=== PATIENT | male | born 1990 | race African-American/Black ===

== ENCOUNTER 2022-03-28 11:58 | Emergency (ER) | payer SELFPAY ==
[2022-03-28 12:36] VITALS: BP 117/63; PULSE 101; RESP 16; TEMP 98; BMI 21.6
== END 2022-03-28 16:25 | disposition home or self-care (01) ==
LOC: JER 11:58
DX: U07.1 COVID-19 (principal)
CPT/HCPCS: 0241U-QW; 93005; 93010; 99284-25

== ENCOUNTER 2024-07-12 11:18 | Inpatient (IN) | payer OTHER ==
[2024-07-12 14:21] LABS: BASO % 0.1 % (0-2.0); EOS % 2.7 % (0-4.5); HEMATOCRIT 33.7 % (35.4-49); HEMOGLOBIN 10.3 GM/dL (11.7-16.9); MCHC 30.6 g/dl (32.0-35.9); MEAN CELL VOLUME 64.1 fl (80-96); MEAN PLT VOLUME 8.4 fl (7.5-11.1); MONO % 6.7 % (3.8-10.2); NEUT % 80.5 % (42.8-82.8); PLATELET COUNT 544 10^3/uL (134-434); RBC 5.27 M/mm3 (4.00-5.60); RDW 20.8 % (11.9-15.9); WHITE BLOOD COUNT 16.4 K/mm3 (4.0-10.0)
[2024-07-12 14:22] LABS: MCH 19.6 pg (25.7-33.7)
[2024-07-12] MEDS ORDERED: ACETAMINOPHEN INJECTION 100 ML ONE ×2 (14:22→22:58)
[2024-07-12] MEDS ORDERED: MAG HYDROX/AL HYDROX/SIMETH 30 ML UNIT-DOSE CUP ONE (14:23)
[2024-07-12] MEDS ORDERED: FAMOTIDINE 20 MG/50 ML IVPB 20 MG/50 ML MG IVPB ONE (14:23)
[2024-07-12] MEDS: ACETAMINOPHEN 1000 MG/100 ML BAG IVPB ONE ×2 (14:29→23:25)
[2024-07-12] MEDS: MAG HYDROX/AL HYDROX/SIMETH 30 ML UNIT-DOSE CUP PO ONE (14:29)
[2024-07-12] MEDS: FAMOTIDINE 20 MG/50 ML IVPB 20 MG/50 ML MG IVPB ONE (14:30)
[2024-07-12 14:41] LABS: INR 1.05 (0.83-1.09); PROTHROMBIN TIME (PATIENT) 11.9 SEC (9.7-13.0)
[2024-07-12 14:44] LABS: ACTIVATED PTT 30.5 SECONDS (25.2-36.5)
[2024-07-12 14:53] LABS: POTASSIUM 4.2 mmol/L (3.5-5.1)
[2024-07-12 14:56] LABS: ALBUMIN 3.9 g/dl (3.4-5.0); BLOOD UREA NITROGEN 14.1 mg/dL (7-18); CALCIUM 9.8 mg/dL (8.5-10.1)
[2024-07-12 14:59] LABS: CREATININE 1.3 mg/dL (0.55-1.3)
[2024-07-12 15:01] LABS: TOT PROT 7.7 g/dl (6.4-8.2)
[2024-07-12 15:07] LABS: ANISOCYTOSIS 0; MACROCYTOSIS 0
[2024-07-12] MEDS ORDERED: DEXTROSE 50%-WATER 25 GM/50 ML DISP.SYRIN ONE (15:23)
[2024-07-12 15:40] LABS: HIV INTERPRETATION NEGATIVE (NEGATIVE)
[2024-07-12] MEDS: DEXTROSE 50%-WATER 25 GM/50 ML DISP.SYRIN IVPUSH ONE (16:26)
[2024-07-12 17:36] LABS: PH,URINE 5.5 (5.0-8.0); URINE APPEARANCE CLEAR; URINE BILIRUBIN NEGATIVE (NEGATIVE); URINE COLOR YELLOW; URINE GLUCOSE (UA) 2+ (NEGATIVE); URINE KETONE 2+ (NEGATIVE); URINE LEUK ESTERASE NEGATIVE (NEGATIVE); URINE NITRITE NEGATIVE (NEGATIVE); URINE PROTEIN 1+ (NEGATIVE); URINE UROBILINOGEN 0.2 mg/dL (0.2-1.0)
[2024-07-12 17:37] LABS: HYALINE CASTS 0.81 /uL (0-3.1); URINE BACTERIA 5.6 /uL (0-1359); URINE RBC 61.3 /uL (0-23.9); URINE WBC 0.8 /uL (0-25.8)
[2024-07-12 20:54] LABS: RETICULOCYTES 1.51 % (0.5-1.5)
[2024-07-12] MEDS ORDERED: CEFTRIAXONE 1 GM/50 ML BAG ONE (22:58)
[2024-07-12] MEDS: SODIUM CHLORIDE 1,000 ML IV STA (23:10)
[2024-07-12] MEDS: CEFTRIAXONE 1 GM in DEXTROSE 5%-WATER - 50 ML IVPB SCH (23:10)
[2024-07-12] MEDS: INSULIN ASPART SLIDING SCALE (NOVOLOG) 1 VIAL SQ SCH (23:11)
[2024-07-12] MEDS: DEXTROSE 5%-NORMAL SALINE 1,000 ML IV SCH (23:25)
[2024-07-13] MEDS ORDERED: MAG HYDROX/AL HYDROX/SIMETH 30 ML UNIT-DOSE CUP PO PRN (07:55)
[2024-07-13 10:01] LABS: HEMATOCRIT 29.5 % (35.4-49); MCHC 30.7 g/dl (32.0-35.9); MEAN CELL VOLUME 65.1 fl (80-96); MEAN PLT VOLUME 8.6 fl (7.5-11.1); PLATELET COUNT 457 10^3/uL (134-434); RBC 4.53 M/mm3 (4.00-5.60); RDW 20.6 % (11.9-15.9); WHITE BLOOD COUNT 10.2 K/mm3 (4.0-10.0)
[2024-07-13 10:28] LABS: POTASSIUM 3.9 mmol/L (3.5-5.1)
[2024-07-13 10:31] LABS: CALCIUM 8.7 mg/dL (8.5-10.1)
[2024-07-13 10:32] LABS: ALBUMIN 3.3 g/dl (3.4-5.0); MAGNESIUM 2.1 mg/dL (1.8-2.4)
[2024-07-13 10:35] LABS: CREATININE 1.3 mg/dL (0.55-1.3); PHOSPHOROUS 3.1 mg/dL (2.5-4.9)
[2024-07-13 10:36] LABS: BILIRUBIN,TOTAL 0.8 mg/dL (0.2-1); TOT PROT 6.7 g/dl (6.4-8.2)
[2024-07-13] MEDS: CEFTRIAXONE 1 G/50 ML PREMIX 50 ML IVPB SCH (10:55)
[2024-07-13 12:42] VITALS: BMI 20.2
[2024-07-14 08:08] LABS: HEMATOCRIT 28.2 % (35.4-49); HEMOGLOBIN 8.6 GM/dL (11.7-16.9); MCHC 30.6 g/dl (32.0-35.9); MEAN CELL VOLUME 64.9 fl (80-96); MEAN PLT VOLUME 7.9 fl (7.5-11.1); PLATELET COUNT 437 10^3/uL (134-434); RBC 4.35 M/mm3 (4.00-5.60); RDW 20.5 % (11.9-15.9); WHITE BLOOD COUNT 10.6 K/mm3 (4.0-10.0)
[2024-07-14 08:14] LABS: MCH 19.9 pg (25.7-33.7)
[2024-07-14 08:28] LABS: ALBUMIN 3.1 g/dl (3.4-5.0); CALCIUM 8.2 mg/dL (8.5-10.1)
[2024-07-14 08:29] LABS: BLOOD UREA NITROGEN 7.1 mg/dL (7-18); MAGNESIUM 1.9 mg/dL (1.8-2.4)
[2024-07-14 08:30] LABS: CREATININE 1.1 mg/dL (0.55-1.3)
[2024-07-14 08:32] LABS: BILIRUBIN,TOTAL 0.6 mg/dL (0.2-1); TOT PROT 6.2 g/dl (6.4-8.2)
[2024-07-14] MEDS: PEG 3350/NA SULF BICARB CL/KCL 4000 ML SOLN.RECON PO ONE (15:32)
[2024-07-15 08:59] LABS: BASO % 0.8 % (0-2.0); HEMATOCRIT 29.7 % (35.4-49); HEMOGLOBIN 9.1 GM/dL (11.7-16.9); LYMPH % 21.9 % (8-40); MCH 19.8 pg (25.7-33.7); MCHC 30.6 g/dl (32.0-35.9); MEAN CELL VOLUME 64.6 fl (80-96); MEAN PLT VOLUME 7.9 fl (7.5-11.1); MONO % 9.6 % (3.8-10.2); NEUT % 58.7 % (42.8-82.8); PLATELET COUNT 462 10^3/uL (134-434); RBC 4.59 M/mm3 (4.00-5.60); RDW 19.9 % (11.9-15.9); WHITE BLOOD COUNT 7.6 K/mm3 (4.0-10.0)
[2024-07-15 09:21] LABS: POTASSIUM 3.9 mmol/L (3.5-5.1)
[2024-07-15 09:23] LABS: ALBUMIN 3.3 g/dl (3.4-5.0); BLOOD UREA NITROGEN 7.3 mg/dL (7-18); CALCIUM 8.8 mg/dL (8.5-10.1); MAGNESIUM 1.9 mg/dL (1.8-2.4)
[2024-07-15 09:26] LABS: CREATININE 1.2 mg/dL (0.55-1.3)
[2024-07-15 09:28] LABS: BILIRUBIN,TOTAL 0.6 mg/dL (0.2-1); TOT PROT 6.4 g/dl (6.4-8.2)
[2024-07-16 08:34] LABS: BASO % 0.4 % (0-2.0); EOS % 15.7 % (0-4.5); HEMATOCRIT 29.8 % (35.4-49); HEMOGLOBIN 9.3 GM/dL (11.7-16.9); LYMPH % 19.8 % (8-40); MCHC 31.1 g/dl (32.0-35.9); MEAN CELL VOLUME 64.1 fl (80-96); MONO % 11.8 % (3.8-10.2); NEUT % 52.3 % (42.8-82.8); PLATELET COUNT 465 10^3/uL (134-434); RBC 4.64 M/mm3 (4.00-5.60); RDW 20.1 % (11.9-15.9); WHITE BLOOD COUNT 10.3 K/mm3 (4.0-10.0)
[2024-07-16 08:39] LABS: MCH 19.9 pg (25.7-33.7)
[2024-07-16 08:53] LABS: CHLORIDE 106 mmol/L (98-107); POTASSIUM 4.3 mmol/L (3.5-5.1); SODIUM 139 mmol/L (136-145)
[2024-07-16 08:56] LABS: ALBUMIN 3.1 g/dl (3.4-5.0); ANION GAP 3 mmol/L (4-13); BLOOD UREA NITROGEN 10.4 mg/dL (7-18); CALCIUM 8.4 mg/dL (8.5-10.1); CO2 29 mmol/L (21-32); GLUCOSE,RANDOM 69 mg/dL (74-106); MAGNESIUM 1.9 mg/dL (1.8-2.4)
[2024-07-16 08:58] LABS: SGPT/ALT 18 U/L (13-61)
[2024-07-16 08:59] LABS: CREATININE 1.1 mg/dL (0.55-1.3); SGOT/AST 23 U/L (15-37)
[2024-07-16 09:00] LABS: BILIRUBIN,TOTAL 0.5 mg/dL (0.2-1); TOT PROT 6.2 g/dl (6.4-8.2)
[2024-07-16 09:01] LABS: ALK PHOS 33 U/L (45-117)
[2024-07-16 09:33] LABS: ANISOCYTOSIS 3+; MACROCYTOSIS 0; OVALOCYTE 2+
[2024-07-16] MEDS: IRON SUCROSE INJECTION 200 MG in SODIUM CHLORIDE 100 ML IVPB ONE (12:12)
[2024-07-16] MEDS: ACETAMINOPHEN 325 MG TABLET (FP) PO PRN (13:52)
[2024-07-17 07:56] LABS: BASO % 0.5 % (0-2.0); EOS % 11.3 % (0-4.5); HEMATOCRIT 26.3 % (35.4-49); LYMPH % 18.8 % (8-40); MCHC 30.4 g/dl (32.0-35.9); MEAN CELL VOLUME 64.4 fl (80-96); MEAN PLT VOLUME 7.3 fl (7.5-11.1); MONO % 11.2 % (3.8-10.2); NEUT % 58.2 % (42.8-82.8); PLATELET COUNT 421 10^3/uL (134-434); RBC 4.08 M/mm3 (4.00-5.60); RDW 20.3 % (11.9-15.9); WHITE BLOOD COUNT 11.6 K/mm3 (4.0-10.0)
[2024-07-17 08:15] LABS: CHLORIDE 110 mmol/L (98-107); POTASSIUM 4.7 mmol/L (3.5-5.1); SODIUM 140 mmol/L (136-145)
[2024-07-17 08:21] LABS: MCH 19.6 pg (25.7-33.7)
[2024-07-17 08:36] LABS: ALBUMIN 3.1 g/dl (3.4-5.0); ANION GAP 2 mmol/L (4-13); CO2 28 mmol/L (21-32); SGOT/AST 19 U/L (15-37); SGPT/ALT 21 U/L (13-61)
[2024-07-17 08:37] LABS: BLOOD UREA NITROGEN 10.5 mg/dL (7-18); GLUCOSE,RANDOM 79 mg/dL (74-106)
[2024-07-17 08:38] LABS: BILIRUBIN,TOTAL 0.4 mg/dL (0.2-1)
[2024-07-17 08:39] LABS: ALK PHOS 31 U/L (45-117)
[2024-07-17] MEDS ORDERED: IRON SUCROSE INJECTION 200 MG in SODIUM CHLORIDE 100 ML IVPB ONE (10:00)
[2024-07-17] MEDS: predniSONE 20 MG TABLET (UD) PO SCH (12:06)
[2024-07-17 17:18] LABS: BASO % 0.5 % (0-2.0); EOS % 6.5 % (0-4.5); HEMATOCRIT 28.9 % (35.4-49); HEMOGLOBIN 8.8 GM/dL (11.7-16.9); LYMPH % 13.9 % (8-40); MCHC 30.3 g/dl (32.0-35.9); MEAN CELL VOLUME 64.3 fl (80-96); MEAN PLT VOLUME 7.6 fl (7.5-11.1); MONO % 4.2 % (3.8-10.2); NEUT % 74.9 % (42.8-82.8); PLATELET COUNT 496 10^3/uL (134-434); RBC 4.49 M/mm3 (4.00-5.60); RDW 20.2 % (11.9-15.9); WHITE BLOOD COUNT 8.8 K/mm3 (4.0-10.0)
[2024-07-17 17:23] LABS: MCH 19.5 pg (25.7-33.7)
[2024-07-17] MEDS: FERROUS SO4 325 MG TABLET (FP) PO SCH (21:44)
[2024-07-18 01:19] VITALS: RESP 18
[2024-07-18 08:48] LABS: BASO % 0.4 % (0-2.0); EOS % 1.6 % (0-4.5); HEMATOCRIT 27.8 % (35.4-49); HEMOGLOBIN 8.3 GM/dL (11.7-16.9); LYMPH % 18.2 % (8-40); MCHC 29.8 g/dl (32.0-35.9); MEAN CELL VOLUME 64.9 fl (80-96); MONO % 8.9 % (3.8-10.2); NEUT % 70.9 % (42.8-82.8); PLATELET COUNT 501 10^3/uL (134-434); RBC 4.28 M/mm3 (4.00-5.60); RDW 20.4 % (11.9-15.9); WHITE BLOOD COUNT 12.8 K/mm3 (4.0-10.0)
[2024-07-18 08:49] LABS: MCH 19.4 pg (25.7-33.7)
[2024-07-18 09:11] LABS: CHLORIDE 108 mmol/L (98-107); POTASSIUM 4.1 mmol/L (3.5-5.1); SODIUM 142 mmol/L (136-145)
[2024-07-18 09:14] LABS: ALBUMIN 3.2 g/dl (3.4-5.0); ANION GAP 9 mmol/L (4-13); BLOOD UREA NITROGEN 12.5 mg/dL (7-18); CO2 25 mmol/L (21-32); GLUCOSE,RANDOM 78 mg/dL (74-106); MAGNESIUM 1.9 mg/dL (1.8-2.4)
[2024-07-18 09:17] LABS: CREATININE 0.9 mg/dL (0.55-1.3); SGOT/AST 18 U/L (15-37); SGPT/ALT 21 U/L (13-61)
[2024-07-18 09:18] LABS: BILIRUBIN,TOTAL 0.4 mg/dL (0.2-1); TOT PROT 6.4 g/dl (6.4-8.2)
[2024-07-18 09:20] LABS: ALK PHOS 32 U/L (45-117)
[2024-07-18] MEDS ORDERED: IRON SUCROSE INJECTION 200 MG in SODIUM CHLORIDE 100 ML IVPB ONE (10:00)
[2024-07-18 14:07] VITALS: BP 130/71; PULSE 85; TEMP 98.6
== END 2024-07-18 14:19 | disposition home or self-care (01) | DRG 245 ==
LOC: JER 11:18 → JERBED 17:35 → J7W 23:49
PROVIDERS: ADMIT Internal Medicine
PROC: 0DBF8ZX Excision of Right Large Intestine, Via Natural or Artificial Opening Endoscopic, Diagnostic (ICD-10-PCS; 2024-07-15)
PROC: 0DBG8ZX Excision of Left Large Intestine, Via Natural or Artificial Opening Endoscopic, Diagnostic (ICD-10-PCS; principal; 2024-07-15 09:30)
DX: K51.911 Ulcerative colitis, unspecified with rectal bleeding (principal); D50.9 Iron deficiency anemia, unspecified; K92.1 Melena; D62 Acute posthemorrhagic anemia; T80.89XA Other complications following infusion, transfusion and therapeutic injection, initial encounter; Y84.8 Other medical procedures as the cause of abnormal reaction of the patient, or of later complication, without mention of misadventure at the time of the procedure
CPT/HCPCS: 36415; 74177-TC; 80053; 81003; 82272; 82728; 82962; 83036; 83540; 83550; 83631; 83690; 83735; 83993; 84100; 85025; 85027; 85045; 85610; 85651; 85730; 86140; 86480; 86704; 86803; 86850; 86900; 86901; 87040; 87045; 87046; 87086; 87205; 87209; 87324; 87340; 87389; 87425; 87449; 87517; 87798; 88305-TC; 93005; 93010; 99285-25; G0480; J0131; J1756; Q9967

== ENCOUNTER 2025-02-27 12:12 | Inpatient (IN) | payer OTHER ==
[2025-02-27 12:19] VITALS: BMI 21.6
[2025-02-27] MEDS ORDERED: ONDANSETRON 4 MG/2 ML VIAL ONE (13:14)
[2025-02-27] MEDS: ONDANSETRON 4 MG/2 ML VIAL IVPUSH ONE (13:27)
[2025-02-27 13:52] LABS: ABSOLUTE IMMATURE GRANULOCYTES 0.04 x10^3/uL (0.0-0.031); BASOPHILS # 0.07 x10^3/uL (0.01-0.08); EOSINOPHIL % 1.2 % (0.8-7.0); EOSINOPHILS # 0.19 x10^3/uL (0.04-0.54); MCHC 28.3 g/dl (32.3-36.5); MEAN CELL VOLUME 67.1 fl (79.0-92.2); MEAN PLT VOLUME 10.3 fl (9.4-12.4); MONOCYTE # 1.34 x10^3/uL (0.30-0.82); MONOCYTE % 8.7 % (5.3-12.2); RDW 19.9 % (12.0-15.6)
[2025-02-27 14:02] LABS: INR 1.18 (0.83-1.09); PROTHROMBIN TIME (PATIENT) 13.0 SEC (9.7-13.0)
[2025-02-27 14:10] LABS: CO2 22 mmol/L (21-32); GLUCOSE,RANDOM 79 mg/dL (74-106)
[2025-02-27 14:12] LABS: SGOT/AST 28 U/L (15-37); SGPT/ALT 25 U/L (13-61)
[2025-02-27 14:13] LABS: CREATININE 1.4 mg/dL (0.55-1.3)
[2025-02-27 14:15] LABS: TOT PROT 8.0 g/dl (6.4-8.2)
[2025-02-27 14:30] LABS: LACTIC ACID 2.3 mmol/L (0.4-2.0)
[2025-02-27 14:31] LABS: ALK PHOS 63 U/L (45-117)
[2025-02-27] MEDS: LACTATED RINGERS SOLUTION 1000 ML INFUS.BAG IV ONE ×2 (14:58→17:30)
[2025-02-27 16:34] LABS: LACTIC ACID 2.9 mmol/L (0.4-2.0)
[2025-02-27 18:45] LABS: ERYTHROCYTE SEDIMENTATION RATE 2 mm/hr (0-10)
[2025-02-27] MEDS ORDERED: PIPERACILLIN/TAZOB 4.5 GM 4.5 GM/100 ML BAG IVPB ONE (19:59)
[2025-02-27] MEDS: PIPERACILLIN/TAZOB 4.5 GM 4.5 GM in DEXTROSE 5%-WATER 100 ML IVPB ONE (20:07)
[2025-02-28] MEDS ORDERED: ONDANSETRON 4 MG/2 ML VIAL IVPUSH PRN (01:13)
[2025-02-28] MEDS ORDERED: ACETAMINOPHEN 1000 MG/100 ML BAG IVPB PRN (01:18)
[2025-02-28] MEDS: SODIUM CHLORIDE 1,000 ML IV SCH (01:35)
[2025-02-28] MEDS: PIPERACILLIN/TAZOB 3.375 GM 3.375 GM in DEXTROSE 5%-WATER - 50 ML IVPB SCH (01:36)
[2025-02-28] MEDS ORDERED: PIPERACILLIN/TAZOB 3.375 GM 3.375 GM in DEXTROSE 5%-WATER - 50 ML IVPB SCH (02:00)
[2025-02-28 08:55] LABS: MCHC 29.5 g/dl (32.3-36.5); MEAN CELL VOLUME 65.6 fl (79.0-92.2); RDW 19.0 % (12.0-15.6)
[2025-02-28 10:00] LABS: COCAINE, UR NEGATIVE (NEGATIVE); PHENCYCLIDINE,URINE NEGATIVE (NEGATIVE); URINE AMPHETAMINES NEGATIVE (NEGATIVE); URINE BARBITURATES NEGATIVE (NEGATIVE); URINE BENZODIAZEPINES NEGATIVE (NEGATIVE)
[2025-02-28 10:01] LABS: METHADONE, UR NEGATIVE (NEGATIVE)
[2025-02-28 10:12] LABS: OPIATES, URI NEGATIVE (NEGATIVE)
[2025-02-28 11:11] LABS: GLUCOSE,RANDOM 85.0 mg/dL (74-106)
[2025-02-28 11:12] LABS: CO2 27.0 mmol/L (21-32)
[2025-02-28 11:13] LABS: CREATININE 1.5 mg/dL (0.55-1.3); SGPT/ALT 21.0 U/L (13-61)
[2025-02-28 11:15] LABS: SGOT/AST 23.0 U/L (15-37)
[2025-02-28 11:16] LABS: TOT PROT 6.6 g/dl (6.4-8.2)
[2025-02-28 11:17] LABS: ALK PHOS 46.0 U/L (45-117)
[2025-02-28] MEDS: MESALAMINE 800 MG TABLET.DR PO SCH (14:13)
[2025-02-28 18:01] LABS: LDH 209.0 U/L (87-246)
[2025-02-28 18:47] VITALS: BP 120/71; PULSE 61; RESP 18; TEMP 99
== END 2025-02-28 18:53 | disposition left against medical advice (07) | DRG 245 ==
LOC: JER 12:12 → JERBED 13:07 → J5S 21:08 → OBSVTOIN 02-28 00:47
PROVIDERS: ADMIT Internal Medicine
DX: K51.919 Ulcerative colitis, unspecified with unspecified complications (principal); N17.9 Acute kidney failure, unspecified; D50.9 Iron deficiency anemia, unspecified; D72.829 Elevated white blood cell count, unspecified; F12.90 Cannabis use, unspecified, uncomplicated; K92.1 Melena; R10.84 Generalized abdominal pain
CPT/HCPCS: 36415; 74177-TC; 80053; 80307; 82550; 82553; 82570; 82728; 83550; 83605; 83615; 83690; 83735; 84100; 84156; 84300; 85025; 85027; 85610; 85651; 86140; 86850; 86900; 86901; 87040; 87045; 87046; 87324; 87449; 93005; 93010; 99285-25; G0378